=== PATIENT | female | born 1950 | race Caucasian/White ===

== ENCOUNTER 2018-08-26 14:51 | Emergency (ER) | payer MEDICARE, MEDICAID ==
[~2018-08-26] VITALS: Ht 162.6 cm; Wt 84.5 kg
[2018-08-26 14:54] VITALS: BP 132/76
== END 2018-08-26 16:11 | disposition home or self-care (01) ==
LOC: ED 16:00
DX: M72.2 Plantar fascial fibromatosis (principal); I10 Essential (primary) hypertension; E11.9 Type 2 diabetes mellitus without complications; F17.200 Nicotine dependence, unspecified, uncomplicated
CPT/HCPCS: 82962; 99283; 99284

== ENCOUNTER 2018-10-25 11:11 | Observation (INO) | payer MEDICARE, MEDICAID ==
[~2018-10-25] VITALS: Ht 162.6 cm; Wt 77.2 kg
== END 2018-10-26 15:46 | disposition home or self-care (01) ==
LOC: ED 13:09 → INTOOBSV 13:24 → EDIP 13:24 → 5SO 15:47 → DCLOUNGE 10-26 15:40
PROVIDERS: ADMIT Emergency Medicine; ATTEND Emergency Medicine
DX: R07.89 Other chest pain (principal); K44.9 Diaphragmatic hernia without obstruction or gangrene; I25.2 Old myocardial infarction; I10 Essential (primary) hypertension; E78.5 Hyperlipidemia, unspecified; E11.9 Type 2 diabetes mellitus without complications; F17.210 Nicotine dependence, cigarettes, uncomplicated; E66.9 Obesity, unspecified; Z68.31 Body mass index [BMI] 31.0-31.9, adult; Z79.84 Long term (current) use of oral hypoglycemic drugs; Z79.899 Other long term (current) drug therapy; Z88.1 Allergy status to other antibiotic agents; Z90.710 Acquired absence of both cervix and uterus; Z95.5 Presence of coronary angioplasty implant and graft
CPT/HCPCS: 36415; 71046; 76700; 78452; 80048; 80053; 80061; 81003; 82962; 83036; 83690; 83735; 84443; 84484; 85025; 93005; 93017; 96372; 99284; A9502; C9898; G0378; J1650; J1815; J2785

== ENCOUNTER 2020-08-29 12:26 | Outpatient (CLI) | payer MEDICARE, MEDICAID ==
[~2020-08-29 12:26] MED LIST: AMLO-211 PO; ATOR-2 PO; LISI40TA9 PO; MELO7.5T31 PO; METF-734 PO; METO50TA6 PO; TOUJEO; VICTOZA PEN
== END 2020-08-29 23:59 | disposition home or self-care (01) ==
LOC: CFH 12:26
PROVIDERS: ATTEND Nurse Practitioner
DX: Z12.2 Encounter for screening for malignant neoplasm of respiratory organs (principal); F17.210 Nicotine dependence, cigarettes, uncomplicated
CPT/HCPCS: 71271

== ENCOUNTER 2020-09-15 00:28 | Observation (INO) | payer MEDICARE, MEDICAID ==
[~2020-09-15] VITALS: Ht 161.3 cm; Wt 87.4 kg
[2020-09-15] MEDS ORDERED: ASPIRIN 81 MG TABLET CHEW ONE (00:51)
[2020-09-15] MEDS ORDERED: ONDANSETRON 2MG/ML, 2ML ONE (00:51)
[2020-09-15 00:53] LABS: BASOPHILS % (AUTO) 1 % (0-1); EOSINOPHILS % (AUTO) 3 % (1-7); LYMPHOCYTES % (AUTO) 23 % (22-44); MEAN CORPUSCULAR HEMOGLOBIN 29.1 pg (27.0-34.8); MEAN PLATELET VOLUME 9.8 fL (7.4-10.4); MONOCYTES % (AUTO) 8 % (2-9); NEUTROPHILS % (AUTO) 64 % (42-75); PLATELET COUNT 164 x10^3/uL (130-400); RED BLOOD COUNT 5.34 x10^6/uL (3.82-5.3)
--- NOTE | 2020-09-15 00:55 | NUR ---
report received from tawny rn, pt care transferred at this time. pt joe from home. pt c/o having intermittent epigastric and left sided chest pain for 2 days. history of mi with stent placement. pt states having hiatal hernia in the past and pain feels similar. pt refused asprin enroute. piv placed. Patient is resting comfortably in bed. Bed in lowest, rails engaged, call light on lap. Vital Signs within normal limits. WCTM.
[2020-09-15] MEDS ORDERED: ASPIRIN 81 MG TABLET CHEW PO ONE (01:00)
[2020-09-15 01:05] LABS: ALANINE AMINOTRANSFERASE 50 U/L (12-78); ALBUMIN 3.7 g/dL (3.4-5.0); ANION GAP 6 mmol/L (5-15); CALCIUM 8.8 mg/dL (8.5-10.1); CHLORIDE 111 mmol/L (98-107); CREATININE 0.85 mg/dL (0.55-1.02)
[2020-09-15 01:09] LABS: ALKALINE PHOSPHATASE 88 U/L (45-117); BILIRUBIN,TOTAL 0.7 mg/dL (0.2-1.0); TOTAL PROTEIN 7.3 g/dL (6.4-8.2); TROPONIN I < 0.015 ng/mL (0.000-0.045)
--- NOTE | 2020-09-15 02:11 | NUR ---
PT PROVIDED ICE WATER FOR COMFORT, NAD, DENIES ADDITIONAL QUESTIONS OR NEEDS AT THIS TIME. BED IN [facility], RAILS ENGAGED, CALL LIGHT ON LAP, WCTM. PT TO BE ADMITTED. NO OTHER CHANGES IN CONDITION AT THIS TIME.
--- NOTE | 2020-09-15 03:24 | NUR ---
report called to Estrellita HADLEY, pt care to be transferred on arrival to the floor. no change in pt condition.
[2020-09-15 03:47] VITALS: BP 152/86
[2020-09-15] MEDS ORDERED: ONDANSETRON 2MG/ML, 2ML IVPush PRN (06:00)
[2020-09-15] MEDS ORDERED: ACETAMINOPHEN 325 MG TABLET PO PRN (06:00)
[2020-09-15 06:46] LABS: CHOLESTEROL, TOTAL 131 mg/dL (140-239)
[2020-09-15 06:56] LABS: CHOL/HDL RATIO 3.3; HDL CHOL % 31 % (28-40); HDL CHOLESTEROL (DIRECT) 40 mg/dL (40-60); LDL CHOLESTEROL,CALCULATED 51 mg/dL (54-169); LDL/HDL RATIO 1.3 (0.5-3.0); TRIGLYCERIDES 201 mg/dL (50-200); TROPONIN I < 0.015 ng/mL (0.000-0.045); VLDL CHOLESTEROL 40 mg/dL (0-25)
[2020-09-15] MEDS ORDERED: REGADENOSON 0.4 MG/5 ML SYRINGE ONE (07:01)
[2020-09-15 07:12] LABS: FREE T4 (FREE THYROXINE) 0.87 ng/dL (0.76-1.46)
[2020-09-15] MEDS ORDERED: MAALOX/HYOSCYAMINE/LIDOCAINE 45 ML BTL PO ONE (07:30)
[2020-09-15 07:46] VITALS: BP 139/81
[2020-09-15] MEDS: INSULIN LISPRO 100 UNITS/ML, PEN SQ-INSULIN SCH ×4 (08:24→21:00)
[2020-09-15] MEDS: ENOXAPARIN 40 MG/0.4 ML SQ SCH (08:28)
[2020-09-15] MEDS: metFORMIN XR 500 MG TAB.ER.24H PO SCH (08:30)
[2020-09-15] MEDS: LISINOPRIL 40 MG TABLET PO SCH (08:30)
[2020-09-15] MEDS: PANTOPRAZOLE 40MG TABLET PO SCH (08:30)
[2020-09-15] MEDS: METOPROLOL TARTRATE 50 MG TAB PO SCH ×2 (08:31→20:13)
[2020-09-15] MEDS: AMLODIPINE 10 MG TAB PO SCH (08:31)
[2020-09-15 13:14] VITALS: BP 137/80
[2020-09-15 13:42] LABS: TROPONIN I < 0.015 ng/mL (0.000-0.045)
[2020-09-15 19:09] VITALS: BP 121/80
[2020-09-15] MEDS ORDERED: ATORVASTATIN 80 MG TABLET PO SCH (21:00)
[2020-09-16 01:32] VITALS: BP 135/81
[2020-09-16] MEDS: PANTOPRAZOLE 40MG TABLET PO SCH (05:37)
[2020-09-16 06:48] VITALS: BP 143/78
[2020-09-16] MEDS: INSULIN LISPRO 100 UNITS/ML, PEN SQ-INSULIN SCH ×2 (07:00→11:00)
[2020-09-16] MEDS ORDERED: MAALOX/HYOSCYAMINE/LIDOCAINE 45 ML BTL PO ONE (07:00)
[2020-09-16] MEDS: ENOXAPARIN 40 MG/0.4 ML SQ SCH (08:30)
[2020-09-16] MEDS: AMLODIPINE 10 MG TAB PO SCH (09:00)
[2020-09-16] MEDS: metFORMIN XR 500 MG TAB.ER.24H PO SCH (09:00)
[2020-09-16] MEDS: METOPROLOL TARTRATE 50 MG TAB PO SCH (09:00)
[2020-09-16] MEDS: LISINOPRIL 40 MG TABLET PO SCH (09:00)
[2020-09-16] MEDS ORDERED: PANT40TA6 PO (13:09)
== END 2020-09-16 15:39 | disposition home or self-care (01) ==
LOC: ED 01:30 → INTOOBSV 03:03 → EDIP 03:03 → 5SO 03:34
PROVIDERS: ADMIT Family Medicine; ATTEND Family Medicine
DX: R07.89 Other chest pain (principal); I25.10 Atherosclerotic heart disease of native coronary artery without angina pectoris; R10.13 Epigastric pain; R09.02 Hypoxemia; I10 Essential (primary) hypertension; E11.9 Type 2 diabetes mellitus without complications; J41.0 Simple chronic bronchitis; K44.9 Diaphragmatic hernia without obstruction or gangrene; E78.5 Hyperlipidemia, unspecified; E66.9 Obesity, unspecified; F17.200 Nicotine dependence, unspecified, uncomplicated; I25.2 Old myocardial infarction; R11.0 Nausea; Z68.33 Body mass index [BMI] 33.0-33.9, adult; Z79.4 Long term (current) use of insulin; Z90.710 Acquired absence of both cervix and uterus; Z95.5 Presence of coronary angioplasty implant and graft; Z79.899 Other long term (current) drug therapy
CPT/HCPCS: 36415; 71045; 76705; 78452; 80053; 80061; 82962; 83036; 84439; 84443; 84484; 85025; 93005; 93017; 96372; 99285; A9502; G0378; J1650; J2785